=== PATIENT | female | born 1970 | race Caucasian/White ===

== ENCOUNTER 2017-07-21 22:37 | Emergency (ER) | payer MEDICAID ==
[~2017-07-21] VITALS: Ht 170.2 cm; Wt 74.8 kg
[2017-07-21 23:00] VITALS: BP 105/58
[2017-07-21] MEDS ORDERED: POLYTRIM OP SOL10 ML OPHTHALM (23:07)
--- NOTE | 2017-07-21 23:07 | Emergency Room Report ---
History of Present Illness General Chief Complaint: Eye Problems Source: Patient Present Illness HPI Is a 47-year-old female with no significant past medical history. She presents with chief complaint of left-sided redness has been ongoing for about 4 days. Has discharge and crusting. Denies being affected also. No visual problem. No fever chills but no nausea no vomiting. Allergies: Coded Allergies: CODEINE (Verified Allergy, Unknown, 07/21/17) Patient History Past Medical History: see triage record, old chart reviewed Past Surgical History: none Pertinent Family History: none Social History: Denies: smoking Last Menstrual Period: last week Now: No Immunizations: other Reviewed Nursing Documentation: PMH: Agreed, PSxH: Agreed Nursing Documentation-PMH Past Medical History: No Stated History Review of Systems Eye: Reports: discharge, Denies: eye pain, blurred vision ENT: Denies: ear pain, nose congestion, throat swelling Respiratory: Denies: cough, shortness of breath Cardiovascular: Denies: chest pain, palpitations Gastrointestinal: Denies: abdominal pain, diarrhea, nausea, vomiting Musculoskeletal: Denies: back pain, joint pain Skin: Denies: rash Neurological: Denies: headache, numbness Endocrine: Denies: increased thirst, increased urine Hematologic/Lymphatic: Denies: easy bruising All Other Systems: negative except mentioned in HPI Physical Exam Vital Signs Date Time Temp Pulse Resp B/P (MAP) Pulse Ox O2 Delivery O2 Flow Rate FiO2 07/21/17 22:43 98.2 69 16 105/58 98 Room Air vitals lio Sp02 EP Interpretation: reviewed, normal General Appearance: well appearing, no apparent distress, alert Head: normocephalic, atraumatic Eyes: left eye other - left conjunctiva injected. crusting., bilateral eye PERRL, bilateral eye EOMI ENT: hearing grossly normal, normal pharynx Neck: full range of motion, supple, no meningismus Respiratory: chest non-tender, lungs clear, normal breath sounds Cardiovascular #1: regular rate, rhythm, no murmur Gastrointestinal: normal bowel sounds, non tender, no mass, no organomegaly, no bruit, non-distended Musculoskeletal: back normal, gait/station normal, normal range of motion Psychiatric: mood/affect normal Skin: warm/dry Medical Decision Making Diagnostic Impression: Primary Impression: Conjunctivitis Qualified Codes: H10.32 - Unspecified acute conjunctivitis, left eye ER Course Patient with conjunctivitis. Most likely a dental virus. Blood work way to treat with antibiotic drop. No evidence of foreign body. No evidence of visual changes. Last Vital Signs Date Time Temp Pulse Resp B/P (MAP) Pulse Ox O2 Delivery O2 Flow Rate FiO2 07/21/17 22:43 98.2 69 16 105/58 98 Room Air Status: improved Disposition: HOME, SELF-CARE Condition: Stable Scripts Polymyxin/Trimethoprim (Polytrim Eye Drops) 10 Ml Drops 2 DROP OPHTHALM THREE TIMES A DAY, #1 EA Instill in affected eye for 7 days Prov: FADUMO ZAMBRANO M.D. 07/21/17 Patient Instructions: Bacterial Conjunctivitis, [id number] Additional Instructions: Followup with your Dr. in 7 days. Treat both eyes. Return if worse. FADUMO ZAMBRANO M.D. Jul 21, 2017 23:07
[2017-07-21 23:10] VITALS: BP 105/58
== END 2017-07-21 23:10 | disposition home or self-care (01) ==
LOC: EMR 23:01
DX: H10.9 Unspecified conjunctivitis (principal); Z88.6 Allergy status to analgesic agent
CPT/HCPCS: 99283

== ENCOUNTER 2018-03-14 23:10 | Emergency (ER) | payer MEDICAID ==
[~2018-03-14] VITALS: Ht 172.7 cm; Wt 74.4 kg
[~2018-03-14 23:10] MED LIST: POLYTRIM OP SOL10 ML OPHTHALM
[2018-03-14 23:31] VITALS: BP 112/69
[2018-03-14] MEDS ORDERED: HYDROCORTISONE30 G2 TP (23:40)
[2018-03-14] MEDS ORDERED: CICLOPIROX45 GM TP (23:40)
--- NOTE | 2018-03-14 23:40 | Emergency Room Report ---
History of Present Illness General Chief Complaint: Skin Rash/Abscess Source: Patient Present Illness HPI Is a 47-year-old female with no significant past medical history. She has a history of eczema. She presents with a rash on her face. Started bowel movement over a week ago. Initially the left side of face and progressively spread throughout the whole face. Lately itching. Has not take anything for it. No nausea no vomiting. No fever chills. Denies any other complaint. No drainage. Allergies: Coded Allergies: CODEINE (Verified Allergy, Unknown, 07/21/17) Patient History Past Medical History: see triage record, old chart reviewed Past Surgical History: none Pertinent Family History: none Social History: Denies: smoking Last Menstrual Period: unk Now: No Immunizations: other Reviewed Nursing Documentation: PMH: Agreed; PSxH: Agreed Nursing Documentation-PMH Past Medical History: No Stated History Review of Systems Eye: Denies: eye pain, blurred vision ENT: Denies: ear pain, nose congestion, throat swelling Respiratory: Denies: cough, shortness of breath Cardiovascular: Denies: chest pain, palpitations Gastrointestinal: Denies: abdominal pain, diarrhea, nausea, vomiting Musculoskeletal: Denies: back pain, joint pain Skin: Reports: rash Neurological: Denies: headache, numbness Endocrine: Denies: increased thirst, increased urine Hematologic/Lymphatic: Denies: easy bruising All Other Systems: negative except mentioned in HPI Physical Exam Vital Signs Date Time Temp Pulse Resp B/P (MAP) Pulse Ox O2 Delivery O2 Flow Rate FiO2 03/14/18 23:18 98.4 66 18 112/69 97 Room Air 98.4 vitals normal Sp02 EP Interpretation: reviewed, normal General Appearance: well appearing, no apparent distress, alert Head: normocephalic, atraumatic, other - Face: She has a tinea like rash scattered throughout. No abscess. No erythema. Eyes: bilateral eye PERRL, bilateral eye EOMI ENT: hearing grossly normal, normal pharynx Neck: full range of motion, supple, no meningismus Respiratory: chest non-tender, lungs clear, normal breath sounds Cardiovascular #1: regular rate, rhythm, no murmur Gastrointestinal: normal bowel sounds, non tender, no mass, no organomegaly, no bruit, non-distended Musculoskeletal: back normal, gait/station normal, normal range of motion Psychiatric: mood/affect normal Skin: warm/dry Medical Decision Making Diagnostic Impression: Primary Impression: Tinea faciale ER Course Patient with tinea of the face. No evidence of any cellulitis. No evidence of sepsis or abscess. We'll discharge home. Last Vital Signs Date Time Temp Pulse Resp B/P (MAP) Pulse Ox O2 Delivery O2 Flow Rate FiO2 03/14/18 23:31 98.4 66 18 112/69 97 Room Air 98.4 Status: unchanged Disposition: HOME, SELF-CARE Condition: Stable Scripts Ciclopirox (CICLOPIROX) 45 Gm Gel..gram. 45 GM TP TID, #45 GM Prov: FADUMO ZAMBRANO M.D. 03/14/18 Hydrocortisone (Hydrocortisone Cream 2.5%) Y Cream.appl 1 APPLIC TP BID, #15 GM Prov: FADUMO ZAMBRANO M.D. 03/14/18 Referrals: REGAL [facility]ERETT YUNG,REFERRING (PCP) Additional Instructions: Follow-up with your doctor in a week. If not better in a few weeks, you may need a referral to see a hat and cap sewer. Return if symptom worsen. FADUMO ZAMBRANO M.D. Mar 14, 2018 23:40
[2018-03-15 00:30] VITALS: BP 112/69
== END 2018-03-15 00:34 | disposition home or self-care (01) ==
LOC: EMR 23:29
DX: B35.8 Other dermatophytoses (principal); Z88.5 Allergy status to narcotic agent
CPT/HCPCS: 99282